=== PATIENT | female | born 1980 | race Caucasian/White ===

== ENCOUNTER 2024-06-20 11:28 | Emergency (ER) | payer OTHER, SELFPAY ==
[2024-06-20 11:31] VITALS: BP 161/91; PULSE 79; TEMP 36.8; O2SAT 97
--- NOTE | 2024-06-20 12:38 | W.ED.GENAD ---
Discharge Plan Disposition Patient Disposition: Home Condition: Stable Discharge Details Clinical Impression: Closed fracture of phalanx of left index finger Primary Care Provider: Guillermina,Local ED Provider: Edmundo Monreal Home Meds and New Rx's Prescriptions: New oxycodone 5 mg tablet 5 mg PO BID PRN (Reason: severe pain (scale score 7-10)) Qty: 10 0RF Discharge Instructions Instructions: Oxycodone, Finger Fracture ED Additional Instructions: Please take ibuprofen over the counter. Take 600mg by mouth every 6 hours as needed for pain. Please take acetaminophen (tylenol) - 650mg every 6 hours by mouth as needed for pain. Keep splint intact. X-ray of your finger reveals the following: BONES: There is an acute fracture through the mid shaft of the middle phalanx of the index finger. The fracture is angulated with the apex directed anteriorly. There does not appear to be involvement of the joint spaces. No bony destructive lesion is seen. JOINTS: No dislocation is present. SOFT TISSUE: Soft tissue swelling of the index finger. IMPRESSION:Angulated fracture of the middle phalanx of the left index finger cyst scribe above. Please contact your orthopedic surgeon. Call today. Additional outpatient follow-up is necessary. Return to the ER immediately for any worsening or new concerning symptoms. Discharge Data Discharge Date/Time-TO BE ENTERED AT DEPARTURE: 06/20/24 14:03 HPI General Mode of arrival: ambulatory. Date/Time Provider Initiated Documentation: 06/20/24 12:21. Limitations to Documentation: no limitations. Information obtained by: patient. HPI Narrative: 43yo female here with chief complaint of finger pain. Patient fell and tried to catch herself with her left hand and injured her left index finger. This occurred prior to arrival. Pain is moderate to severe and worse with movement. Cloud Systems Administrator associated numbness or tingling. No other injury. Related Data Home Medications ?Medication ?Instructions ?Recorded ?Confirmed oxycodone 5 mg tablet 5 mg PO BID PRN severe pain (scale 06/20/24 score 7-10) #10 tabs Previous Rx's ?Medication ?Instructions ?Recorded oxycodone 5 mg tablet 5 mg PO BID PRN severe pain (scale 06/20/24 score 7-10) #10 tabs Allergies Allergy/AdvReac Type Severity Reaction Status Date / Time gabapentin Allergy Mild Swelling/Ed Verified 06/20/24 11:38 gennaro hydroxychloroquine (From Allergy Mild Skin Rash Verified 06/20/24 11:38 Plaquenil) metformin AdvReac Intermediate Other (See Verified 06/20/24 11:35 Comment) General Stated Complaint: Orthopedic ROBERT: 3 Review of Systems Musculoskeletal Musculoskeletal: Reports as per HPI Exam Extrem Left upper extremity: hand (mid phalanx deformed and swollen, ttp, limited ROM at DIP and PIP) Details: neuromotor exam normal, neuromotor exam abnormal and other (two pt sensation nl) Course Vital Signs Vital signs: Vital Signs Temperature 36.8 C 06/20/24 11:31 Pulse 79 06/20/24 11:31 Blood Pressure 161/91 H 06/20/24 11:31 Pulse Oximetry 97 06/20/24 11:31 Temperature 36.8 C 06/20/24 11:31 Temperature Source Temporal Artery Scan 06/20/24 11:31 Pulse 79 06/20/24 11:31 Blood Pressure 161/91 H 06/20/24 11:31 Blood Pressure Position Sitting 06/20/24 11:31 Pulse Oximetry 97 06/20/24 11:31 Oxygen Delivery Method Room Air 06/20/24 11:31 Oxygen Flow Rate 0 06/20/24 11:31 Procedures Nerve Block Nerve Block 1: Time out performed: Yes Local Anesthetic: Bupivicaine 0.5% Side: left Nerve Blocks: digital Procedure Successful: Yes Patient Tolerated Procedure: well Complications: none Additional Comments: verbal informed consent Medical Decision Making 43yo female here with injury to left 2nd digit. Neuro intact distally. Digital block performed for pain. xray #1 reviewed and interpreted by radiology: There is an acute fracture through the mid shaft of the middle phalanx of the index finger. The fracture is angulated with the apex directed anteriorly. xray #2 reviewed and interpreted by radiology: There is again seen a fracture of the midshaft of the middle phalanx of the left index finger. On the lateral view there is persistent angulation of the fracture with the apex of the fracture directed anteriorly. On the AP view, there does appear to be improved alignment of the fracture. However there is persistent 2-3 mm radial displacement of the distal fracture. I called and spoke with orthopedic surgeon senior vice president and chief information officer at [facility] in [place]. Reviewed xray. They agree with finger splint and outpt followup in their clinic. Usual and customary discharge instructions were reviewed with the patient. Quality:SDOH Health Related Social Needs: No Data to Display PFSH All Active Problems (Updated 06/20/24 @ 13:43 by Edmundo Monreal MD) Closed fracture of phalanx of left index finger (Acute) Social History Smoking risk assessment performed?: No
--- NOTE | 2024-06-20 12:57 | DI.RAD_ITS ---
Exam(s) XR FINGER LT INDEX EXAM: XR FINGER LT INDEX EXAM DATE/TIME: CLINICAL HISTORY: fall, pain, deformity. TECHNIQUE: 2D digital imaging was performed of the left finger. Three views were obtained. PA/AP, oblique, and lateral views were obtained. COMPARISON: None. FINDINGS: BONES: There is an acute fracture through the mid shaft of the middle phalanx of the index finger. T he fracture is angulated with the apex directed anteriorly. There does not appear to be involvement of the joint spaces. No bony destructive lesion is seen. JOINTS: No dislocation is present. SOFT TISSUE: Soft tissue swelling of the index finger. IMPRESSION: Angulated fracture of the middle phalanx of the left index finger cyst scribe above. DATA REPOSITORY: RADIATION DOSE DELIVERED:
--- NOTE | 2024-06-20 13:38 | DI.RAD_ITS ---
Exam(s) XR FINGER LT INDEX EXAM: XR FINGER LT INDEX EXAM DATE/TIME: CLINICAL HISTORY: post splint. TECHNIQUE: 2D digital imaging was performed of the left finger. Three views were obtained. PA/AP, oblique, and lateral views were obtained. COMPARISON: Comparison examination is from earlier in the day. FINDINGS: BONES: There is again seen a fracture of the midshaft of the middle phalanx of the left index finger. On the lateral view there is persistent angulation of the fracture with the apex of the fracture di rected anteriorly. On the AP view, there does appear to be improved alignment of the fracture. Orellana josie there is persistent 2-3 mm radial displacement of the distal fracture. No bony destructive lesio n is seen. JOINTS: No dislocation is present. SOFT TISSUE: There is soft tissue swelling present. IMPRESSION: Persistent angulation and displacement of the fracture of the middle phalanx of the left index finger as described above. DATA REPOSITORY: RADIATION DOSE DELIVERED:
[2024-06-20 13:52] VITALS: BP 147/94; PULSE 78; RESP 16; TEMP 36.9; O2SAT 97
[2024-06-20 13:54] VITALS: BP 147/94; PULSE 80; RESP 15; O2SAT 96
== END 2024-06-20 14:03 | disposition home or self-care (01) ==
PROVIDERS: Emergency Provider Student in an Organized Health Care Education/Training Program
DX: S62.621A Displaced fracture of middle phalanx of left index finger, initial encounter for closed fracture (principal); W19.XXXA Unspecified fall, initial encounter
CPT/HCPCS: 29505; 99283; 73140; J0665